=== PATIENT | male | born 1990 | race Caucasian/White ===

== ENCOUNTER 2024-06-30 14:31 | Emergency (ER) | payer OTHER ==
[2024-06-30 14:39] VITALS: BP 131/86; PULSE 79; RESP 18; TEMP 97.8; BMI 30.1
[2024-06-30] MEDS ORDERED: BACITRACIN ZINC 15 GM TUBE TOPICAL OINTMENT ONE (16:07)
[2024-06-30] MEDS ORDERED: BACITRACIN ZINC 15 GM TUBE TOPICAL OINTMENT TP ONE (16:08)
== END 2024-06-30 16:17 | disposition home or self-care (01) ==
LOC: JERFT 14:31
DX: Z48.02 Encounter for removal of sutures (principal)
CPT/HCPCS: 99281-25